=== PATIENT | male | born 1970 | race Caucasian/White ===

== ENCOUNTER 2019-07-15 07:58 | Emergency (ER) | payer OTHER ==
[2019-07-15 08:11] VITALS: BP 174/90; PULSE 84; TEMP 97.9; BMI 32.1
[2019-07-15] MEDS ORDERED: DIPHTH,PERTUSS(ACELL),TET 0.5 ML DISP.SYRIN IM ONE ×2 (08:42→08:44)
--- NOTE | 2019-07-15 08:56 | PDOC ---
Post Exposure HPI - General Chief Complaint: Non EmpBld/Body Flud Exposure Stated Complaint: NEEDLE STICK Time Seen by Provider: 07/15/19 08:37 History Source: Patient - History of Present Illness Timing: other (1 hr ago) Exposed Location: Left: Hand(s) Past History - Past Medical History Allergies/Adverse Reactions: Allergies Allergy/AdvReac Type Severity Reaction Status Date / Time No Known Allergies Allergy Verified 07/15/19 08:01 Home Medications: Ambulatory Orders Unobtainable 07/15/19 COPD: No - Immunization History Immunization Up to Date: No - Psycho Social/Smoking Cessation Hx Smoking History: Current every day smoker Cigars Per Day: 1 Information on smoking cessation initiated: No Hx Alcohol Use: No Drug/Substance Use Hx: No Review of Systems - Review of Systems Constitutional: Yes: Fever Integumentary: Yes: Other (puncture wound) *Physical Exam - Vital Signs Last Vital Signs Temp Pulse Resp BP Pulse Ox 97.9 F 84 18 174/90 H 100 07/15/19 08:03 07/15/19 08:03 07/15/19 08:03 07/15/19 08:03 07/15/19 08:03 - Physical Exam General Appearance: Yes: Appropriately Dressed. No: Apparent Distress HEENT: positive: Normal Voice Neck: positive: Supple Respiratory/Chest: negative: Respiratory Distress Integumentary: positive: Other (no obvious puncture wound to L palm) Medical Decision Making - Medical Decision Making 07/15/19 09:57 Patient is a 48-year-old male with no medical problems who works for the [employer] and here for evaluation after he states a needle attached to a syringe that was poking out of a garbage bag that was in front of an apartment building, struck his left palm through 1 pair of thick gloves this am. States site did not bleed but expressed minimal blood. Has since washed with soap and water. Does not remember last tetanus vaccine or if he was vaccinated against hep B. Patient well-appearing and stable with no obvious puncture wound. Had lengthy discussion with patient that though his risk for HIV and hepatitis C through a needle stick exposure is very low, that there is still some risk. PEP was offered to patient but was declined by patient. Tetanus given and baseline HIV and hepatitis labs ordered. Patient to call for results and follow-up with his PMD for additional future testing. Discharge - Discharge Information Problems reviewed: Yes Clinical Impression/Diagnosis: Needlestick injury accident Condition: Good Disposition: HOME - Follow up/Referral Referrals: Geovanna Garcia [Non Staff, Medical] - - Patient Discharge Instructions Patient Printed Discharge Instructions: How to Handle Body Fluid Exposure -- Non-Healthcare Worker (At Home, Caregi Additional Instructions: You were seen for needle stick exposure. We discussed with you the low risk for HIV and hepatitis B but offered PEP to which you declined We sent off baseline HIV and hepatitis test on you today. You can call for results at [phone] Please follow up with your PMD for a repeat HIV and hepatitis test - Post Discharge Activity Work/Back to School Note: Back to Work
== END 2019-07-15 09:10 | disposition home or self-care (01) ==
LOC: JERFT 07:58
PROC: 3E0234Z Introduction of Serum, Toxoid and Vaccine into Muscle, Percutaneous Approach (ICD-10-PCS; principal; 2019-07-15)
DX: Z77.21 Contact with and (suspected) exposure to potentially hazardous body fluids (principal); S61.432A Puncture wound without foreign body of left hand, initial encounter; W46.0XXA Contact with hypodermic needle, initial encounter; Y93.89 Activity, other specified; Y92.411 Interstate highway as the place of occurrence of the external cause; Y99.0 Civilian activity done for income or pay
CPT/HCPCS: 36415; 86317; 86704; 86706; 86803; 87340; 87389; 90715; 99283-25